=== PATIENT | male | born 1970 | race African-American/Black ===

== ENCOUNTER 2021-02-20 15:06 | Emergency (ER) | payer MEDICARE, MEDICAID ==
[~2021-02-20] VITALS: Ht 188 cm; Wt 100.0 kg
[2021-02-20 15:11] VITALS: BP 119/74
== END 2021-02-20 15:45 | disposition home or self-care (01) ==
LOC: EMS 15:12
DX: F41.9 Anxiety disorder, unspecified (principal)
CPT/HCPCS: 99281; Z7502